=== PATIENT | female | born 1975 | race Caucasian/White ===

== ENCOUNTER 2023-11-14 14:39 | Day surgery (SDC) | payer SELFPAY ==
[2023-11-14] MEDS: Sodium Chloride 0.9% 1,000 ML IV ONE (16:28)
[2023-11-14 16:36] LABS: BASOPHILS ABSOLUTE AUTO 0.02 K/uL (0.00-0.20); BASOPHILS PERCENT AUTO 0.1 % (0.0-1.0); EOSINOPHILS ABSOLUTE AUTO 0.03 K/uL (0.00-0.45); EOSINOPHILS PERCENT AUTO 0.2 % (0.0-6.0); HEMATOCRIT 39.6 % (37.0-47.0); IMMATURE GRAN ABSOLUTE AUTO 0.04 K/uL (0.00-0.05); IMMATURE GRAN PERCENT AUTO 0.3 % (0.0-0.4); LYMPHOCYTES ABSOLUTE AUTO 1.04 K/uL (1.00-4.80); LYMPHOCYTES PERCENT AUTO 7.5 % (24.0-44.0); MEAN CORPUSCULAR HEMOGLOBIN 26.5 pg (28.0-32.0); MEAN CORPUSCULAR HGB CONC 32.8 g/dL (32.0-36.0); MEAN CORPUSCULAR VOLUME 80.7 fL (83.0-99.0); MEAN PLATELET VOLUME 10.7 fL (9.4-12.3); MONOCYTES PERCENT AUTO 6.5 % (0.0-8.0); NEUTROPHILS ABSOLUTE AUTO 11.83 K/uL (1.80-7.70); NEUTROPHILS PERCENT AUTO 85.4 % (41.0-71.0); PLATELET COUNT,PLT 305 K/uL (150-400); RED BLOOD CELL COUNT 4.91 M/uL (4.10-5.30); WHITE BLOOD CELL COUNT,WBC 13.86 K/uL (3.9-11.3)
[2023-11-14 17:08] LABS: A/G RATIO 1.2 (0.9-1.6); ALBUMIN 3.9 g/dL (3.4-5.0); BILIRUBIN TOTAL 0.3 mg/dL (0.2-1.0); CALCIUM 9.9 mg/dL (8.5-10.1); CARBON DIOXIDE,CO2 23.6 mmol/L (21.0-32.0); CREATININE 1.1 mg/dL (0.6-1.0); EST CRCL DRUG DOSING (CG) 59.5 mL/min; POTASSIUM,K 3.5 mmol/L (3.5-5.1); PROTEIN TOTAL,TP 7.2 g/dL (6.4-8.2)
[2023-11-14 17:17] LABS: APPEARANCE,URINE CLEAR; BILIRUBIN,URINE NEGATIVE (NEGATIVE); COLOR,URINE YELLOW; GLUCOSE,URINE NEGATIVE (NEGATIVE); KETONES,URINE NEGATIVE (NEGATIVE); LEUKOCYTE ESTERASE,URINE NEGATIVE (NEGATIVE); NITRITE,URINE NEGATIVE (NEGATIVE); OCCULT BLOOD,URINE NEGATIVE (NEGATIVE); PH,URINE 7.5 (5.0-8.0); PROTEIN,URINE NEGATIVE (NEGATIVE); UROBILINOGEN,URINE 0.2 EU/dL (<2.0)
[2023-11-14] MEDS: Morphine 4 MG/ML Syringe IVPUSH ONE (18:36)
[2023-11-14] MEDS: Ondansetron 4 MG/2 ML SDV IVPUSH ONE (18:36)
[2023-11-14] MEDS: ceFAZolin 2 GM in Sodium Chloride 0.9% 50 ML IV ONE (20:03)
[2023-11-14] MEDS: metroNIDAZOLE/Normal Saline 500 MG in Premix Bag 1 BAG IV ONE (20:07)
[2023-11-14] MEDS ORDERED: Propofol 200 MG/20 ML SDV ONE (20:30)
[2023-11-14] MEDS ORDERED: fentaNYL 250 MCG/5 ML SDV ONE (20:30)
[2023-11-14] MEDS ORDERED: Midazolam 1 MG/ML 2 ML SDV ONE (20:30)
[2023-11-14] MEDS ORDERED: Rocuronium Bromide 50 MG/5 ML Syringe ONE (20:32)
[2023-11-14] MEDS ORDERED: Succinylcholine/Sod PF 100 MG/5 ML SYRINGE IV ONE (20:32)
[2023-11-14] MEDS ORDERED: Dexamethasone 4 MG/ML 5 ML MDV ONE (20:33)
[2023-11-14] MEDS ORDERED: Ondansetron 4 MG/2 ML SDV ONE (20:33)
[2023-11-14] MEDS ORDERED: Bupivacaine 0.5% 30 ML SDV ONE (20:43)
[2023-11-14] MEDS ORDERED: ceFAZolin 1 GM Vial ONE (20:43)
[2023-11-14] MEDS ORDERED: Lactated Ringers 1,000 ML IV SCH ×2 (20:45→22:30)
[2023-11-14] MEDS ORDERED: Glycopyrrolate 0.2 MG/ML SDV ONE (21:24)
[2023-11-14] MEDS ORDERED: ePHEDrine 50 MG/ML SDV ONE (21:26)
[2023-11-14] MEDS ORDERED: Water For Injection, Sterile 20 ML ONE (21:26)
[2023-11-14] MEDS ORDERED: Phenylephrine HCl 0.5 MG/5 ML AMP ONE (21:41)
[2023-11-14] MEDS ORDERED: Sugammadex Sodium 200 MG/2 ML VIAL IV ONE (21:44)
[2023-11-14] MEDS ORDERED: traMADol 50 MG Tab PO PRN (22:22)
[2023-11-14] MEDS ORDERED: Morphine 4 MG/ML Syringe IVPUSH PRN (22:23)
[2023-11-14] MEDS: metroNIDAZOLE/Normal Saline 500 MG in Premix Bag 1 BAG IV SCH (23:46)
[2023-11-15] MEDS: ceFAZolin 1 GM in Sodium Chloride 0.9% 50 ML IV SCH (01:17)
== END 2023-11-15 11:10 | disposition home or self-care (01) ==
LOC: MW.ED 14:39 → MW.SDS 20:21 → MW.MS 20:24 → MW.SDS 11-15 11:10
PROVIDERS: ATTEND Surgery
DX: K35.33 Acute appendicitis with perforation, localized peritonitis, and gangrene, with abscess (principal); I10 Essential (primary) hypertension; F32.A Depression, unspecified; F41.9 Anxiety disorder, unspecified; Z79.899 Other long term (current) drug therapy; Z98.890 Other specified postprocedural states; Z88.5 Allergy status to narcotic agent; Z91.041 Radiographic dye allergy status
CPT/HCPCS: 36415; 44970; 74176; 80053; 81003; 85025; 96361; 96365; 96367; 96375; 99285; J0131; J0330; J0665; J0690; J1100; J1836; J2250; J2270; J2371; J2405; J2704; J3010; J3490; J7030; 00840